=== PATIENT | male | born 1990 | race American Indian/Alaskan Native ===

== ENCOUNTER 2017-11-03 14:21 | Emergency (ER) | payer OTHER ==
[2017-11-03 15:09] VITALS: BP 117/72
[2017-11-03] MEDS ORDERED: BENADRYL PO ONE (17:01)
[2017-11-03] MEDS ORDERED: MOTRIN PO ONE (17:01)
[2017-11-03] MEDS ORDERED: DELTASONE PO ONE (17:01)
--- NOTE | 2017-11-03 17:41 | XRay Report ---
FINAL REPORT PROCEDURE: XR CHEST ROUTINE 2V TECHNIQUE: PA and lateral chest radiographs were obtained. HISTORY: Chest pain. COMPARISON: No prior studies are available for comparison. FINDINGS: Heart: Normal. Mediastinum/Vessels: Normal. Lungs/Pleural space: Normal. Bony thorax: No acute osseous abnormality. Other: IMPRESSION: No radiographic evidence of acute cardiopulmonary disease.
--- NOTE | 2017-11-03 17:57 | Emergency Department Report ---
ED Chest Pain HPI - General Chief Complaint: Chest Pain Stated Complaint: C/P SKIN PROBLEM Time Seen by Provider: 11/03/17 16:48 Source: patient Mode of arrival: Ambulatory Limitations: No Limitations - History of Present Illness Initial Comments: Patient is a 27-year-old -[place] male who presented with chest discomfort. Patient states it's bilateral chest hurts when he takes a deep breath but also when he moves. 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 Patient also is complaining of itching all over. Patient has a history of advanced eczema. Patient denies any shortness of breath fevers chills nausea vomiting or diarrhea at this time. - Related Data Previous Rx's Medication Instructions Recorded Last Taken Type Prednisone [predniSONE 10 mg 10 mg PO .TAPER #1 tab.ds.pk 11/03/17 Unknown Rx (6-Day Pack, 21 Tabs)] Triamcinolone 0.5% [Kenalog 0.5% 1 applic TP TID #1 tube 11/03/17 Unknown Rx CREAM] traMADol [Ultram] 50 mg PO Q6HR PRN #10 tablet 11/03/17 Unknown Rx Allergies Allergy/AdvReac Type Severity Reaction Status Date / Time No Known Allergies Allergy Verified 11/03/17 15:03 Heart Score - HEART Score History: Slightly suspicious EKG: Normal Age: < 45 Risk factors: No known risk factors Troponin: < normal limit HEART Score: 0 ED Review of Systems ROS: Stated complaint: C/P SKIN PROBLEM Other details as noted in HPI Comment: All other systems reviewed and negative ED Past Medical Hx - Past Medical History Previous Medical History?: Yes Additional medical history: excema - Surgical History Past Surgical History?: No - Social History Smoking Status: Never Smoker Substance Use Type: None - Medications Home Medications: Home Medications Medication Instructions Recorded Confirmed Last Taken Type Prednisone [predniSONE 10 mg 10 mg PO .TAPER #1 tab.ds.pk 11/03/17 Unknown Rx (6-Day Pack, 21 Tabs)] Triamcinolone 0.5% [Kenalog 0.5% 1 applic TP TID #1 tube 11/03/17 Unknown Rx CREAM] traMADol [Ultram] 50 mg PO Q6HR PRN #10 tablet 11/03/17 Unknown Rx ED Physical Exam - General Limitations: No Limitations General appearance: alert, in no apparent distress - Head Head exam: Present: atraumatic, normocephalic - Eye Eye exam: Present: normal appearance - ENT ENT exam: Present: mucous membranes moist - Neck Neck exam: Present: normal inspection - Respiratory Respiratory exam: Present: normal lung sounds bilaterally. Absent: respiratory distress, wheezes, rales, rhonchi - Cardiovascular Cardiovascular Exam: Present: regular rate, normal rhythm. Absent: systolic murmur, diastolic murmur, rubs, gallop - GI/Abdominal GI/Abdominal exam: Present: soft, normal bowel sounds. Absent: distended, tenderness, guarding, rebound - Rectal Rectal exam: Present: deferred - Extremities Exam Extremities exam: Present: normal inspection - Back Exam Back exam: Present: normal inspection - Neurological Exam Neurological exam: Present: alert, oriented X3 - Psychiatric Psychiatric exam: Present: normal affect, normal mood - Skin Skin exam: Present: warm, dry, intact, normal color, rash (diffuse dry) ED Course Vital Signs 11/03/17 15:04 Temperature 97.6 F Pulse Rate 72 Respiratory 16 Rate Blood Pressure 117/72 O2 Sat by Pulse 100 Oximetry ED Medical Decision Making - EKG Data -: EKG Interpreted by Mi EKG shows normal: sinus rhythm, axis, intervals, QRS complexes, ST-T waves Rate: normal - EKG Data Interpretation: normal EKG - Radiology Data Chest x-ray is within normal limits - Medical Decision Making Patient's chest pain is most likely from either pleurisy or musculoskeletal chest wall pain secondary to his job. Patient be started on pain meds. Patient also will be started on some triamcinolone and prednisone for his eczema. Critical care attestation.: If time is entered above; I have spent that time in minutes in the direct care of this critically ill patient, excluding procedure time. ED Disposition Clinical Impression: Atypical chest pain Eczema Qualifiers: Eczema type: other Qualified Code(s): L30.8 - Other specified dermatitis Disposition: - TO HOME OR SELFCARE Is pt being admited?: No Does the pt Need Aspirin: No Condition: Stable Instructions: Chest Pain (ED) Prescriptions: Prednisone [predniSONE 10 mg (6-Day Pack, 21 Tabs)] 10 mg PO .TAPER #1 tab.ds.pk traMADol [Ultram] 50 mg PO Q6HR PRN #10 tablet PRN Reason: Pain Triamcinolone 0.5% [Kenalog 0.5% CREAM] 1 applic TP TID #1 tube Referrals: [facility] [Outside] - 3-5 Days
== END 2017-11-03 18:30 | disposition home or self-care (01) ==
LOC: ED 14:21
DX: L30.8 Other specified dermatitis (principal); R07.89 Other chest pain
CPT/HCPCS: 71046; 93005; 93010; 99283; J7512

== ENCOUNTER 2018-02-03 17:24 | Emergency (ER) | payer OTHER ==
--- NOTE | 2018-02-03 17:53 | Cat Scan Report ---
FINAL REPORT PROCEDURE: CT head without contrast. TECHNIQUE: Computerized tomography of the head was performed without contrast material. HISTORY: neuro deficits < 6hrs or sx present upon awakening COMPARISON: No prior studies are available for comparison. FINDINGS: The ventricles are normal in size. The hackett matter and white matter appear normal. There are no mass lesions. There is no intracranial hemorrhage. The calvarium appears intact. The mastoid air cells and visualized paranasal sinuses are clear. IMPRESSION: Normal study.
[2018-02-03] MEDS ORDERED: ASPIRIN PO ONE (17:59)
--- NOTE | 2018-02-03 17:59 | Emergency Department Report ---
ED Neuro Deficit HPI - General Chief Complaint: Neuro Symptoms/Deficit Stated Complaint: POSSIBLE STROKE Time Seen by Provider: 02/03/18 17:48 Source: patient Mode of arrival: Wheelchair Limitations: Physical Limitation - History of Present Illness Initial Comments: 27-year-old male with a past medical history of eczema presents to the hospital complaints of substernal left-sided chest pain, arm pain, left leg pain, difficulty walking at 16:30. Patient had a code stroke called in triage. Patient complains of a mild left-sided headache without nausea, vomiting, or photophobia. Complains of left-sided chest pressure with a "little bit of shortness of breath". Patient denies any recent trauma but states he performs heavy lifting at his job. He denies fever, smoking history, or history of CVA. Patient presents with discharge paperwork from [facility] ED visit on January 31. He presented with rectal bleeding, leg pain, and eczema. Diagnosis with ureteral stone with hydronephrosis, unspecified GI hemorrhage branch, and eczema. He received a stone protocol CT abdomen and pelvis. He was discharged on [place], Levaquin, Flomax, and Kenalog. He received follow-up referrals for GI, urology, and internal medicine. - Related Data Home Medications: Previous Rx's Medication Instructions Recorded Last Taken Type Prednisone [predniSONE 10 mg 10 mg PO .TAPER #1 tab.ds.pk 11/03/17 Unknown Rx (6-Day Pack, 21 Tabs)] Triamcinolone 0.5% [Kenalog 0.5% 1 applic TP TID #1 tube 11/03/17 Unknown Rx CREAM] traMADol [Ultram] 50 mg PO Q6HR PRN #10 tablet 11/03/17 Unknown Rx Allergies/Adverse Reactions: Allergies Allergy/AdvReac Type Severity Reaction Status Date / Time No Known Allergies Allergy Verified 11/03/17 15:03 ED Review of Systems ROS: Stated complaint: POSSIBLE STROKE Other details as noted in HPI Comment: All other systems reviewed and negative ED Past Medical Hx - Past Medical History Previous Medical History?: No Additional medical history: excema - Surgical History Past Surgical History?: No - Social History Smoking Status: Never Smoker Substance Use Type: None - Medications Home Medications: Home Medications Medication Instructions Recorded Confirmed Last Taken Type Prednisone [predniSONE 10 mg 10 mg PO .TAPER #1 tab.ds.pk 11/03/17 Unknown Rx (6-Day Pack, 21 Tabs)] Triamcinolone 0.5% [Kenalog 0.5% 1 applic TP TID #1 tube 11/03/17 Unknown Rx CREAM] traMADol [Ultram] 50 mg PO Q6HR PRN #10 tablet 11/03/17 Unknown Rx ED Neuro Physical Exam - General Limitations: Physical Limitation Suspected Stroke: Yes - NIHSS Assessment Interval: Baseline 1a. Level of Consciousness: alert/keenly responsive 1b. LOC Questions: answers both correctly 1c. LOC Commands: performs tasks correctly 2. Best Gaze: normal 3. Visual: no visual loss 4. Facial Palsy: normal symmetrical movement 5b. Motor Arm Right: no drift 5a. Motor Arm Left: no drift 6a. Motor Leg Left: no drift 6b. Motor Leg Right: no drift 7. Limb Ataxia: absent 8. Sensory: normal (left arm) 9. Best Language: no aphasia 10. Dysarthria: normal 11. Extinction/Inattention: no abnormality Total Score: 0 Stroke Severity: No Stroke Symptoms - Other Other exam information: General: No limitations, patient is alert in no acute distress Head exam: Atraumatic, normocephalic Eyes exam: Normal appearance, pupils equal reactive to light, extraocular movements intact ENT: Moist mucous membrane, normal oropharynx Neck exam: Normal inspection, full range of motion, no meningismus nontender Respiratory exam: Clear to auscultation bilateral, no wheezes, rales, crackles Cardiovascular: Normal rate and rhythm, reproducible low sternal and left-sided chest wall tenderness Abdomen: Soft, nondistended, and nontender, with normal bowel sounds, no rebound, or guarding Extremity: Full range of motion normal inspection no deformity, pain with movement of left arm and left leg without vascular tenderness on palpation. Back: Normal Inspection, full range of motion, no tenderness Neurologic: Alert, oriented x3, cranial nerves intact, NIHHS Psychiatric: normal affect, normal mood Skin: Warm, dry, intact ED Course Vital Signs 02/03/18 02/03/18 02/03/18 17:33 17:55 18:00 Temperature 99.3 F Pulse Rate 100 H 73 80 Respiratory 16 12 15 Rate Blood Pressure 137/75 123/64 O2 Sat by Pulse 98 99 Oximetry 02/03/18 02/03/18 02/03/18 18:16 18:30 18:46 Temperature Pulse Rate 74 76 77 Respiratory 16 16 13 Rate Blood Pressure 122/68 122/69 128/67 O2 Sat by Pulse 100 100 100 Oximetry 02/03/18 02/03/18 02/03/18 19:00 19:26 19:30 Temperature Pulse Rate 79 74 75 Respiratory 19 12 13 Rate Blood Pressure 122/71 126/62 126/62 O2 Sat by Pulse 99 Oximetry 02/03/18 02/03/18 02/03/18 19:46 20:00 20:16 Temperature Pulse Rate 72 71 71 Respiratory 13 11 L 11 L Rate Blood Pressure 126/62 126/62 126/62 O2 Sat by Pulse Oximetry 02/03/18 02/03/18 02/03/18 20:30 20:46 21:02 Temperature Pulse Rate 72 71 78 Respiratory 12 13 23 Rate Blood Pressure 126/62 126/62 126/62 O2 Sat by Pulse Oximetry 02/03/18 21:16 Temperature Pulse Rate 66 Respiratory 12 Rate Blood Pressure 126/62 O2 Sat by Pulse Oximetry - Consultations Consultation #1: 02/03/18 18:03 case d/w Dr Cervantes with Neuro. will evaluate pt 02/03/18 18:24 states her NIHSS is 0 request cta head and nec - Lab Data Result diagrams: 02/03/18 17:52 02/03/18 17:52 Lab Results 02/03/18 02/03/18 02/03/18 Range/Units 17:30 17:52 17:52 WBC 12.4 H (4.5-11.0) K/mm3 RBC 5.26 H (3.65-5.03) M/mm3 Hgb 15.6 H (11.8-15.2) gm/dl Hct 47.3 H (35.5-45.6) % MCV 90 (84-94) fl MCH 30 (28-32) pg MCHC 33 (32-34) % RDW 13.7 (13.2-15.2) % Plt Count 212 (140-440) K/mm3 Lymph % (Auto) 13.8 (13.4-35.0) % [place] % (Auto) 6.5 (0.0-7.3) % Eos % (Auto) 9.2 H (0.0-4.3) % Baso % (Auto) 0.3 (0.0-1.8) % Lymph # 1.7 (1.2-5.4) K/mm3 [place] # 0.8 (0.0-0.8) K/mm3 Eos # 1.1 H (0.0-0.4) K/mm3 Baso # 0.0 (0.0-0.1) K/mm3 Seg Neutrophils % 70.2 H (40.0-70.0) % Seg Neutrophils # 8.7 H (1.8-7.7) K/mm3 PT 13.1 (12.2-14.9) Sec. INR 0.94 (0.87-1.13) APTT 28.2 (24.2-36.6) Sec. Thrombin Time (15.1-19.6) Sec. Sodium (137-145) mmol/L Potassium (3.6-5.0) mmol/L Chloride (98-107) mmol/L Carbon Dioxide (22-30) mmol/L Anion Gap mmol/L BUN (9-20) mg/dL Creatinine (0.8-1.5) mg/dL Estimated GFR ml/min BUN/Creatinine Ratio % Glucose (75-100) mg/dL POC Glucose 93 (70-105) Calcium (8.4-10.2) mg/dL Troponin T (0.00-0.029) ng/mL 02/03/18 02/03/18 Range/Units 17:52 17:52 WBC (4.5-11.0) K/mm3 RBC (3.65-5.03) M/mm3 Hgb (11.8-15.2) gm/dl Hct (35.5-45.6) % MCV (84-94) fl MCH (28-32) pg MCHC (32-34) % RDW (13.2-15.2) % Plt Count (140-440) K/mm3 Lymph % (Auto) (13.4-35.0) % [place] % (Auto) (0.0-7.3) % Eos % (Auto) (0.0-4.3) % Baso % (Auto) (0.0-1.8) % Lymph # (1.2-5.4) K/mm3 [place] # (0.0-0.8) K/mm3 Eos # (0.0-0.4) K/mm3 Baso # (0.0-0.1) K/mm3 Seg Neutrophils % (40.0-70.0) % Seg Neutrophils # (1.8-7.7) K/mm3 PT (12.2-14.9) Sec. INR (0.87-1.13) APTT (24.2-36.6) Sec. Thrombin Time 16.5 (15.1-19.6) Sec. Sodium 140 (137-145) mmol/L Potassium 4.0 (3.6-5.0) mmol/L Chloride 101.4 (98-107) mmol/L Carbon Dioxide 27 (22-30) mmol/L Anion Gap 16 mmol/L BUN 12 (9-20) mg/dL Creatinine 0.7 L (0.8-1.5) mg/dL Estimated GFR > 60 ml/min BUN/Creatinine Ratio 17 % Glucose 107 H (75-100) mg/dL POC Glucose (70-105) Calcium 9.3 (8.4-10.2) mg/dL Troponin T < 0.010 (0.00-0.029) ng/mL - EKG Data -: EKG Interpreted by Ma EKG shows normal: sinus rhythm, axis (qrs 68), QRS complexes (qrsd 83), ST-T waves (no stemi/t inv) Rate: normal (79) When compared to previous EKG there are: previous EKG unavailable - Radiology Data Radiology results: report reviewed ct head: naf cta head: normal cta neck: normal - Medical Decision Making not TPA candidate since NIHSS 0 Patient does not have any stroke risk factors. CT head, CTA head and neck are normal Patient's pain appeared to be musculoskeletal origin Symptoms improved after Reglan, Benadryl, and Toradol Patient is pain-free, back to normal, and denies any weakness or numbness. - Differential Diagnosis conversion disorder, msk cp, complex migraine, CVA, ICH, tumor, disection Critical Care Time: No Critical care attestation.: If time is entered above; I have spent that time in minutes in the direct care of this critically ill patient, excluding procedure time. ED Disposition Clinical Impression: Chest wall pain, Musculoskeletal pain, Headache Disposition: TO HOME OR SELFCARE Is pt being admited?: No Does the pt Need Aspirin: No Condition: Stable Instructions: Chest Pain (ED), Musculoskeletal Pain (ED), Acute Headache (ED) Additional Instructions: Current medication as prescribed and as needed for pain. Follow up with your doctor. Return if symptoms worsen as indicated by your discharge instructions Referrals: PRIMARY CARE, [Primary Care Provider] - 3-5 Days Forms: Work/School Release Form(ED) Time of Disposition: 21:55
[2018-02-03 18:04] LABS: Basophils % (Auto) 0.3 % (0.0-1.8); Eosinophils # (Auto) 1.1 K/mm3 (0.0-0.4); Eosinophils % (Auto) 9.2 % (0.0-4.3); Hematocrit 47.3 % (35.5-45.6); Hemoglobin 15.6 gm/dl (11.8-15.2); Lymphocytes # (Auto) 1.7 K/mm3 (1.2-5.4); Lymphocytes % (Auto) 13.8 % (13.4-35.0); Mean Corpuscular HGB Conc 33 % (32-34); Mean Corpuscular Hemoglobin 30 pg (28-32); Mean Corpuscular Volume 90 fl (84-94); Monocytes # (Auto) 0.8 K/mm3 (0.0-0.8); Monocytes % (Auto) 6.5 % (0.0-7.3); Platelet Count 212 K/mm3 (140-440); Red Blood Count 5.26 M/mm3 (3.65-5.03); Red Cell Distribution Width 13.7 % (13.2-15.2)
[2018-02-03 18:19] LABS: BUN/Creatinine Ratio 17; Blood Urea Nitrogen 12 mg/dL (9-20); Calcium 9.3 mg/dL (8.4-10.2); Hemolysis Index 41
[2018-02-03] MEDS ORDERED: PEPCID IV ONE ×2 (18:22→21:00)
[2018-02-03] MEDS ORDERED: TORADOL IV ONE ×2 (18:22→21:00)
[2018-02-03] MEDS ORDERED: REGLAN IV ONE ×2 (18:22→21:00)
[2018-02-03] MEDS ORDERED: BENADRYL IV ONE ×2 (18:22→21:00)
[2018-02-03 18:25] LABS: INR 0.94 (0.87-1.13)
[2018-02-03 18:35] LABS: Partial Thromboplastin Time 28.2 Sec. (24.2-36.6)
--- NOTE | 2018-02-03 20:43 | Cat Scan Report ---
FINAL REPORT PROCEDURE: CT angiogram head with contrast. TECHNIQUE: Computerized tomographic angiography of the head was performed after the IV injection of iodinated nonionic contrast including image processing. The image data was postprocessed using 2-dimensional multiplanar reformatted (MPR) and 3-dimensional (MIP and/or volume rendered) techniques. HISTORY: left sided pain and headache COMPARISON: No prior studies are available for comparison. FINDINGS: Both distal internal carotid arteries are patent. Both anterior cerebral arteries are patent. The anterior communicating artery is patent. Both middle cerebral arteries are patent. Both posterior communicating arteries are patent. Both distal vertebral arteries are patent. Both posterior inferior cerebellar arteries are patent. The basilar artery is patent. Both anterior inferior cerebellar arteries are patent. Both superior cerebellar and both posterior cerebral arteries are patent. There are no signs of aneurysm disease. There is no evidence of a vasculitis. The brain parenchyma appears normal. There are no areas of abnormal contrast enhancement. IMPRESSION: Normal study.
--- NOTE | 2018-02-03 20:48 | Cat Scan Report ---
FINAL REPORT PROCEDURE: CT angiogram neck with contrast. TECHNIQUE: Computerized tomographic angiography of the neck was performed after the IV injection of iodinated nonionic contrast including image processing. The image data was postprocessed using 2-dimensional multiplanar reformatted (MPR) and 3-dimensional (MIP and/or volume rendered) techniques. HISTORY: left sided pain and headache COMPARISON: No prior studies are available for comparison. Note: Assessment of carotid artery stenosis is based on measurement of the distal internal carotid artery diameter as the denominator for stenosis calculations and the [place] Symptomatic Carotid Endarterectomy Trial (NASCET) stenosis criteria . CPT 3100F FINDINGS: The origins of the innominate artery, left common carotid artery and left subclavian artery are widely patent. Both common carotid arteries are widely patent. Both common carotid artery bifurcations are widely patent. There is no narrowing at the origins of the internal nor external carotid arteries. The cervical portions of both internal carotid arteries are widely patent. Both vertebral arteries are widely patent. The soft tissues of the neck are unremarkable. The bones appear intact. The mastoid air cells and paranasal sinuses are clear. IMPRESSION: Normal study.
[2018-02-03 21:24] VITALS: BP 126/62
== END 2018-02-03 22:35 | disposition home or self-care (01) ==
LOC: ED 17:24
DX: R07.89 Other chest pain (principal); R51 Headache; R26.2 Difficulty in walking, not elsewhere classified; M79.10 Myalgia, unspecified site
CPT/HCPCS: 36415; 70450; 70496; 70498; 80048; 82962; 84484; 85025; 85610; 85670; 85730; 93005; 93010; 96374; 96375; 99284; J1200; J1885; J2765; Q9967

== ENCOUNTER 2018-08-27 07:23 | Emergency (ER) | payer OTHER ==
[2018-08-27 07:36] VITALS: BP 139/64
--- NOTE | 2018-08-27 08:38 | Emergency Department Report ---
ED Rash HPI - HPI Chief Complaint: Skin Rash Stated Complaint: LUMPS ON GROIN Duration: months Location: Upper Extremities, Lower Extremities Suspected Cause: Unknown Rash Symptoms: Yes Itching, No Facial Swelling, No Tongue/Oral Swelling, No Breathing Difficulties, No Choking Sensation, No Wheezing/Dyspnea, No Peeling, No Blistering, No Fever, No Lightheaded, No Malaise, No Myalgias Severity: moderate Other History: This is a 28-year-old -[place] male who presents to the emergency room with generalized rash. Past history of eczema. Patient states he has tried everything over the counter to improve rash with no improvement of symptoms. Patient was rash is from scalp to feet. It is sheeding everywhere and itching. He is also complaining of swollen lymph nodes to groin region. Patient denies penile discharge, urinary frequency, urgency, dysuria, or back pain. ED Review of Systems ROS: Stated complaint: LUMPS ON GROIN Other details as noted in HPI Constitutional: denies: chills, fever Respiratory: denies: cough, shortness of breath, wheezing Cardiovascular: denies: chest pain, palpitations Gastrointestinal: denies: abdominal pain, nausea, diarrhea Skin: rash. denies: lesions Neurological: denies: headache, weakness, paresthesias Psychiatric: denies: anxiety, depression ED Past Medical Hx - Past Medical History Previous Medical History?: No Additional medical history: excema - Surgical History Additional Surgical History: knee - Social History Smoking Status: Never Smoker Substance Use Type: None - Medications Home Medications: Home Medications Medication Instructions Recorded Confirmed Last Taken Type Prednisone [predniSONE 10 mg 10 mg PO .TAPER #1 tab.ds.pk 11/03/17 Unknown Rx (6-Day Pack, 21 Tabs)] Triamcinolone 0.5% [Kenalog 0.5% 1 applic TP TID #1 tube 11/03/17 Unknown Rx CREAM] traMADol [Ultram] 50 mg PO Q6HR PRN #10 tablet 11/03/17 Unknown Rx Ibuprofen [Motrin] 800 mg PO Q8HR PRN #15 tablet 03/24/18 Unknown Rx cephALEXin [Keflex] 500 mg PO Q8HR 10 Days #30 cap 03/24/18 Unknown Rx Prednisone [predniSONE 10 mg 10 mg PO .TAPER #1 tab.ds.pk 08/27/18 Unknown Rx (6-Day Pack, 21 Tabs)] Triamcinolone 0.5% [Kenalog 0.5% 1 applic TP TID #60 gm 08/27/18 Unknown Rx CREAM] Rash Exam - Exam General: Vital signs noted. No distress. Alert and acting appropriately. HEENT: No Periorbital Edema, No Conjuctival Injection, No Chemosis, No Perioral Edema, No Tongue Edema, No Uvular Edema, No Compromised Airway, No Drooling Lungs: Yes Good Air Exchange (Normal Breath Sounds), No Wheezes, No Ronchi, No Stridor, No Cough, No Labored Respirations, No Retractions, No Use of Accessory Muscles, No Other Abnormal Lung Sounds Heart: Yes Regular, No Murmur Skin: Yes Excoriations, Yes Other (generalized lichenification of BUE & BLE with hyperpigmentation), No Urticarial Rash, No Maculopapular Rash, No Morbilliform rash, No Bulla(e), No Weeping, No Tenderness, No Erythema, No Edema, No Encrustations ED Course Vital Signs 08/27/18 07:26 Temperature 98.1 F Pulse Rate 88 Respiratory 16 Rate Blood Pressure 139/64 O2 Sat by Pulse 96 Oximetry ED Medical Decision Making - Medical Decision Making This is a 28 y.o. male accompanied presents to the ER with generalized rash. Patient examined by me. No distress noted. Vitals stable. The rash appears to be a severe case of eczema. Given dexamethasone 10 mg IM once while in ER. Start prednisone taper and triamcinolone cream. Referral to dermatology for continued care. Referral to [facility]. Discussed plan with patient and agree her ER plan. Patient discharged home stable. Critical care attestation.: If time is entered above; I have spent that time in minutes in the direct care of this critically ill patient, excluding procedure time. ED Disposition Clinical Impression: Pruritic rash Atopic dermatitis Qualifiers: Atopic dermatitis type: intrinsic Qualified Code(s): L20.84 - Intrinsic (allergic) eczema Disposition: - TO HOME OR SELFCARE Is pt being admited?: No Does the pt Need Aspirin: No Condition: Stable Instructions: Eczema (ED) Additional Instructions: Apply a thin layer of triamcinolone cream 3 times a day for 5-10 days. Wash area prior to applying cream. Follow-up with the helix coil winder from the referrals below. Prescriptions: Triamcinolone 0.5% [Kenalog 0.5% CREAM] 1 applic TP TID #60 gm Prednisone [predniSONE 10 mg (6-Day Pack, 21 Tabs)] 10 mg PO .TAPER #1 tab.ds.pk Referrals: [facility] MD YANET [Primary Care Provider] - 3-5 Days [facility] [Outside] - 3-5 Days [facility] [Outside] - 3-5 Days [facility] [Provider Group] - 3-5 Days Forms: Work/School Release Form(ED) Time of Disposition: 08:55
[2018-08-27] MEDS ORDERED: DECADRON IM ONE (08:51)
== END 2018-08-27 09:05 | disposition home or self-care (01) ==
LOC: ED 07:23
DX: L20.84 Intrinsic (allergic) eczema (principal)
CPT/HCPCS: 96372; 99282; J1100

== ENCOUNTER 2019-06-08 09:06 | Emergency (ER) | payer SELFPAY ==
[2019-06-08 09:29] VITALS: BP 130/94
--- NOTE | 2019-06-08 10:35 | Emergency Department Report ---
Chief Complaint: Skin Rash Stated Complaint: ECZEMA/PAIN ALL OVER Time Seen by Provider: 06/08/19 10:13 - HPI History of Present Illness: 28 yo M w/ hx of eczema presents requesting medications for his eczema. Pt states he has eczematous rash all over his body and states it is getting worse. States he has no medication for treatment. Pt states this has been going on for "a while." - ROS Review of Systems: Comment: All other systems reviewed and negative Constitutional: denies: chills, fever Skin: reports eczematous rash - Exam Vital Signs: Vital Signs 06/08/19 09:25 Temperature 98.5 F Pulse Rate 100 H Respiratory 16 Rate Blood Pressure 130/94 Blood Pressure 130/94 [Left] O2 Sat by Pulse 100 Oximetry Physical Exam: - General Limitations: No Limitations General appearance: alert, in no apparent distress - Head Head exam: Present: atraumatic, normocephalic - Eye Eye exam: Present: normal appearance - ENT ENT exam: Present: mucous membranes moist - Neck Neck exam: Present: normal inspection - Respiratory Respiratory exam: Present: normal lung sounds bilaterally. Absent: respiratory distress - Cardiovascular Cardiovascular Exam: Present: regular rate, normal rhythm - GI/Abdominal GI/Abdominal exam: Absent: distended - Extremities Exam Extremities exam: Present: normal inspection - Neurological Exam Neurological exam: Present: alert, oriented X3 - Psychiatric Psychiatric exam: Present: normal affect, normal mood - Skin Skin exam: Present: eczematous rash diffusely MSE screening note: Focused history and physical exam performed. Due to findings the following was ordered: n/a 28 yo M w/ hx eczema presents to ED with eczematous rash. Vitals are normal. Pt has no emergent medical condition at this time. Outpt f/u advised. Return precautions given. ED Medical Decision Making - Medical Decision Making 28 yo M w/ hx eczema presents to ED with eczematous rash. Vitals are normal. Pt has no emergent medical condition at this time. Outpt f/u advised. Return precautions given. ED Disposition for MSE Clinical Impression: Eczema Disposition: MED SCREENING EXAM-LEFT Is pt being admited?: No Condition: Stable Instructions: Eczema (ED) Referrals: DAMIEN CATALAN MD [Staff Physician] - 3-5 Days [facility] [Provider Group] - 3-5 Days [facility] [Outside] - 3-5 Days [facility] [Outside] - 3-5 Days Time of Disposition: 10:34
== END 2019-06-08 10:45 | disposition left against medical advice (07) ==
LOC: ED 09:06
DX: L30.9 Dermatitis, unspecified (principal)
CPT/HCPCS: 99282

== ENCOUNTER 2019-07-29 13:56 | Emergency (ER) | payer SELFPAY ==
[2019-07-29 14:38] VITALS: BP 137/69
--- NOTE | 2019-07-29 14:47 | Event Note ---
ED Screening Note Date of service: 07/29/19 Time: 14:49 ED Screening Note: This initial assessment/diagnostic orders/clinical plan/treatment(s) is/are subject to change based on patients health status, clinical progression and re- assessment by fellow clinical providers in the ED. Further treatment and workup at subsequent clinical providers discretion. Patient/guardian urged not to elope from the ED as their condition may be serious if not clinically assessed and managed. Initial orders include: 29yo M states that he has fatigue, widespread body rash and pruritis. He further states that his skin feels tight He states that his flare has been ongoing for a week but is chronic.
[2019-07-29 16:26] LABS: Hematocrit 45.6 % (35.5-45.6); Hemoglobin 15.3 gm/dl (11.8-15.2); Mean Corpuscular HGB Conc 33 % (32-34); Mean Corpuscular Volume 91 fl (84-94); Platelet Count 323 K/mm3 (140-440); Red Blood Count 5.04 M/mm3 (3.65-5.03); Red Cell Distribution Width 14.1 % (13.2-15.2)
[2019-07-29] MEDS ORDERED: dexAMETHasone 4 MG/ML VIAL IM ONE (17:53)
--- NOTE | 2019-07-29 17:56 | Emergency Department Report ---
Chief Complaint: Skin Rash Stated Complaint: WEAK/BODY ACHES Time Seen by Provider: 07/29/19 14:46 - HPI History of Present Illness: 29yo M states that he has fatigue, widespread body rash and pruritis. He further states that his skin feels tight He states that his flare has been ongoing for a week but is chronic. - ROS Review of Systems: All systems reviewed and negative except-Derm Derm-see HPI - Exam Vital Signs: reviewed Vital Signs 07/29/19 07/29/19 14:34 14:38 Temperature 98.6 F Pulse Rate 102 H Respiratory 20 Rate Blood Pressure 137/69 O2 Sat by Pulse 100 Oximetry Physical Exam: General-WNL HEENT-WNl Neck-WNL Lungs-WNL Heart-WNL Abdomen-diffuse erythematous prutitic rash MS-WNL Neuro-WNL MSE screening note: Focused history and physical exam performed. Due to findings the following was ordered: Pt was explained that his rash is non-emergent and that he is being MSE screened out. Pt was told to f/u with Derm and see ER as needed. ED Medical Decision Making - Lab Data Result diagrams: 07/29/19 16:03 ED Disposition for MSE Condition: Stable Referrals: PRIMARY CARE, [Primary Care Provider] - 3-5 Days
== END 2019-07-29 18:22 | disposition left against medical advice (07) ==
LOC: ED 13:56
DX: L29.9 Pruritus, unspecified (principal); R21 Rash and other nonspecific skin eruption; Z88.8 Allergy status to other drugs, medicaments and biological substances
CPT/HCPCS: 36415; 85027; 96372; 99283; J1100

== ENCOUNTER 2019-09-02 22:34 | Emergency (ER) | payer SELFPAY ==
[2019-09-02] MEDS ORDERED: ACETAMINOPHEN 500 MG TAB PO ONE (23:42)
[2019-09-02] MEDS ORDERED: predniSONE 20 MG TAB PO ONE (23:42)
--- NOTE | 2019-09-03 00:08 | Emergency Department Report ---
ED General Adult HPI - General Chief complaint: Pain General Stated complaint: LT ARM LEGS AND FEET PAIN Source: patient Mode of arrival: Ambulatory Limitations: No Limitations - History of Present Illness Initial comments: Patient is a 29-year-old -Maltese male with a history of chronic pain and chronic eczema who presents to the ED with complaint of acute exacerbation of his chronic pain characterized by left shoulder and elbow joint pains, bilateral knee and ankle pains for the last 2 months, worse in the last 1 week. Patient states that he has been taking ibuprofen 600 mg as needed for pain with no relief. Patient denies fall, traumatic injury, heavy lifting, chest pain, shortness of breath, fever, chills, nausea, vomiting, abdominal pain, dysuria, hematuria, flank pain, testicular pain, neck pain or headache and syncope. MD Complaint: Polyarticular joint pains; low back pain -: Gradual, month(s) (2) Location: upper extremity (Left arm), lower extremity (Bilateral leg pains) Radiation: non-radiation Severity scale (0 -10): 8 Quality: aching, sharp Consistency: constant Improves with: none Worsens with: movement Associated Symptoms: denies other symptoms. denies: confusion, chest pain, cough, diaphoresis, fever/chills, headaches, loss of appetite, malaise, nausea/vomiting, rash, seizure, shortness of breath, syncope, other Treatments Prior to Arrival: none - Related Data Previous Rx's Medication Instructions Recorded Last Taken Type Prednisone [predniSONE 10 mg 10 mg PO .TAPER #1 tab.ds.pk 11/03/17 Unknown Rx (6-Day Pack, 21 Tabs)] Triamcinolone 0.5% [Kenalog 0.5% 1 applic TP TID #1 tube 11/03/17 Unknown Rx CREAM] traMADoL [Ultram] 50 mg PO Q6HR PRN #10 tablet 11/03/17 Unknown Rx cephALEXin [Keflex] 500 mg PO Q8HR 10 Days #30 cap 03/24/18 Unknown Rx Prednisone [predniSONE 10 mg 10 mg PO .TAPER #1 tab.ds.pk 08/27/18 Unknown Rx (6-Day Pack, 21 Tabs)] Triamcinolone 0.5% [Kenalog 0.5% 1 applic TP TID #60 gm 08/27/18 Unknown Rx CREAM] Ibuprofen [Ibu] 800 mg PO Q8H PRN #20 tablet 09/03/18 Unknown Rx methOCARBAMOL [Robaxin TAB] 500 mg PO Q6H PRN #14 tablet 09/03/18 Unknown Rx Baclofen 20 mg PO Q8H PRN #30 tablet 09/03/19 Unknown Rx Ibuprofen [Motrin 800 MG tab] 800 mg PO Q8HR PRN #30 tablet 09/03/19 Unknown Rx predniSONE [Deltasone] 60 mg PO QDAY #15 tab 09/03/19 Unknown Rx traMADoL [Ultram 50 MG tab] 50 mg PO Q6HR PRN #12 tablet 09/03/19 Unknown Rx Allergies Allergy/AdvReac Type Severity Reaction Status Date / Time bacitracin Allergy Rash Verified 08/27/18 07:26 [From Neosporin ([id number])] neomycin Allergy Rash Verified 08/27/18 07:26 [From Neosporin ([id number])] polymyxin B Allergy Rash Verified 08/27/18 07:26 [From Neosporin ([id number])] ED Review of Systems ROS: Stated complaint: LT ARM LEGS AND FEET PAIN Other details as noted in HPI Constitutional: denies: chills, fever Eyes: denies: eye pain, eye discharge, vision change ENT: denies: ear pain, throat pain Respiratory: denies: cough, shortness of breath, wheezing Cardiovascular: denies: chest pain, palpitations Endocrine: no symptoms reported Gastrointestinal: denies: abdominal pain, nausea, diarrhea Genitourinary: denies: urgency, dysuria Musculoskeletal: back pain, arthralgia (Bilateral lower extremity pain; left arm pain and low back pain), myalgia. denies: joint swelling Skin: denies: rash, lesions Neurological: denies: headache, weakness, paresthesias Psychiatric: denies: anxiety, depression Hematological/Lymphatic: denies: easy bleeding, easy bruising ED Past Medical Hx - Past Medical History Previous Medical History?: Yes Additional medical history: eczema - Surgical History Past Surgical History?: Yes Additional Surgical History: right knee - Social History Smoking Status: Never Smoker Substance Use Type: None - Medications Home Medications: Home Medications Medication Instructions Recorded Confirmed Last Taken Type Prednisone [predniSONE 10 mg 10 mg PO .TAPER #1 tab.ds.pk 11/03/17 Unknown Rx (6-Day Pack, 21 Tabs)] Triamcinolone 0.5% [Kenalog 0.5% 1 applic TP TID #1 tube 11/03/17 Unknown Rx CREAM] traMADoL [Ultram] 50 mg PO Q6HR PRN #10 tablet 11/03/17 Unknown Rx cephALEXin [Keflex] 500 mg PO Q8HR 10 Days #30 cap 03/24/18 Unknown Rx Prednisone [predniSONE 10 mg 10 mg PO .TAPER #1 tab.ds.pk 08/27/18 Unknown Rx (6-Day Pack, 21 Tabs)] Triamcinolone 0.5% [Kenalog 0.5% 1 applic TP TID #60 gm 08/27/18 Unknown Rx CREAM] Ibuprofen [Ibu] 800 mg PO Q8H PRN #20 tablet 09/03/18 Unknown Rx methOCARBAMOL [Robaxin TAB] 500 mg PO Q6H PRN #14 tablet 09/03/18 Unknown Rx Baclofen 20 mg PO Q8H PRN #30 tablet 09/03/19 Unknown Rx Ibuprofen [Motrin 800 MG tab] 800 mg PO Q8HR PRN #30 tablet 09/03/19 Unknown Rx predniSONE [Deltasone] 60 mg PO QDAY #15 tab 09/03/19 Unknown Rx traMADoL [Ultram 50 MG tab] 50 mg PO Q6HR PRN #12 tablet 09/03/19 Unknown Rx ED Physical Exam - General Limitations: No Limitations General appearance: alert, in no apparent distress - Head Head exam: Present: atraumatic, normocephalic, normal inspection - Eye Eye exam: Present: normal appearance, PERRL, EOMI Pupils: Present: normal accommodation - ENT ENT exam: Present: normal exam, normal orophraynx, mucous membranes moist, TM's normal bilaterally, normal external ear exam - Neck Neck exam: Present: normal inspection, full ROM. Absent: tenderness, meningismus - Respiratory Respiratory exam: Present: normal lung sounds bilaterally. Absent: respiratory distress, wheezes, rales, chest wall tenderness, decreased breath sounds - Cardiovascular Cardiovascular Exam: Present: normal rhythm, tachycardia, normal heart sounds. Absent: systolic murmur, diastolic murmur, rubs, gallop - GI/Abdominal GI/Abdominal exam: Present: soft, normal bowel sounds. Absent: tenderness, guarding, rebound, hyperactive bowel sounds - Extremities Exam Extremities exam: Present: normal inspection, full ROM, tenderness (Palpable left shoulder and left elbow tenderness; palpable bilateral knee tenderness), normal capillary refill - Back Exam Back exam: Present: normal inspection, full ROM, tenderness (Palpable lumbosacral paraspinal musculoskeletal tenderness), muscle spasm, paraspinal tenderness - Neurological Exam Neurological exam: Present: alert, oriented X3, CN II-XII intact, normal gait, reflexes normal - Psychiatric Psychiatric exam: Present: normal affect, normal mood, anxious - Skin Skin exam: Present: warm, dry, intact, normal color. Absent: rash ED Course Vital Signs 09/02/19 09/03/19 09/03/19 22:48 00:47 03:15 Temperature 98.8 F Pulse Rate 126 H 107 H 91 H Respiratory 18 18 Rate Blood Pressure 150/87 144/73 [Right] O2 Sat by Pulse 97 97 Oximetry ED Medical Decision Making - Medical Decision Making This is a 29-year-old -M[place] male with a history of chronic pain and c hronic eczema who presents to the ED with complaint of acute exacerbation of his chronic pain characterized by left shoulder and elbow joint pains, bilateral knee and ankle pains for the last 2 months, worse in the last 1 week. Patient states that he has been taking ibuprofen 600 mg as needed for pain with no relief. In the ED, patient is alert and oriented x3 and is not in distress, anxious and tachycardic in triage. Patient was treated for pain in the ED and on reevaluation, patient's pain is well controlled with medications. 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 On reevaluation, patient's tachycardia resolved with normal saline IV fluids. Patient was discharged home on pain medications and muscle relaxants and advised to follow-up with his primary care physician in 5 to 7 days for reevaluation or return to the ED immediately if symptoms get worse. - Differential Diagnosis DJD; RA; Osteoarthritis; Muscle strain; Chronic pain syndrome Critical care attestation.: If time is entered above; I have spent that time in minutes in the direct care of this critically ill patient, excluding procedure time. ED Disposition Clinical Impression: Polyarticular osteoarthritis, Spasm of muscle of lower back, Dehydration after exertion Disposition: DC-01 TO HOME OR SELFCARE Is pt being admited?: No Does the pt Need Aspirin: No Condition: Stable Instructions: Muscle Strain (ED), Osteoarthritis (ED), Muscle Spasm (ED) Additional Instructions: Take medication with food, drink plenty of fluids and follow-up with your primary care physician in 7 to 10 days for reevaluation. Return to the ED immediately if symptoms get worse. Prescriptions: Baclofen 20 mg PO Q8H PRN #30 tablet PRN Reason: MUSCLE SPASMS predniSONE [Deltasone] 60 mg PO QDAY #15 tab Ibuprofen [Motrin 800 MG tab] 800 mg PO Q8HR PRN #30 tablet PRN Reason: hand pain traMADoL [Ultram 50 MG tab] 50 mg PO Q6HR PRN #12 tablet PRN Reason: Pain Referrals: DAMIEN CATALAN MD [Staff Physician] - 3-5 Days Time of Disposition: 00:09 Print Language: ERITREAN
[2019-09-03 00:48] VITALS: BP 144/73
[2019-09-03] MEDS ORDERED: SODIUM CHLORIDE 0.9% 1000 ML 1,000 ML IV ONE (00:52)
== END 2019-09-03 03:49 | disposition home or self-care (01) ==
LOC: ED 22:34
DX: M19.90 Unspecified osteoarthritis, unspecified site (principal); E86.0 Dehydration; M62.830 Muscle spasm of back; Z79.899 Other long term (current) drug therapy; Z88.6 Allergy status to analgesic agent
CPT/HCPCS: 96360; 99283; J7030; J7512